=== PATIENT | male | born 1990 | race Two or more races ===

== ENCOUNTER 2025-01-30 11:38 | Emergency (ER) | payer OTHER ==
[~2025-01-30] VITALS: Ht 167.6 cm; Wt 90.7 kg
[2025-01-30] MEDS ORDERED: KETOROLAC TROMETHAMINE 60 MG VIAL IM STA (13:56)
[2025-01-30] MEDS ORDERED: KETOROLAC TROMETHAMINE 60 MG VIAL IM ONE (14:08)
[2025-01-30 14:53] LABS: EOS % 1.6 % (0.7-7.0); HEMATOCRIT 44.8 % (40.1-51.0); HEMOGLOBIN 15.7 g/dL (13.7-17.5); LYMPH % 19.4 % (19.3-53.1); MEAN CORPUSCULAR HEMOGLOBIN 30.4 pg (25.6-32.2); MONO % 12.4 % (4.7-12.5); NEUT % 65.8 % (34.0-71.1); PLATELET COUNT 212 K/uL (163-369); RED BLOOD COUNT 5.16 M/uL (4.63-6.08); RED CELL DISTRIBUTION WIDTH 11.4 % (11.6-14.4)
[2025-01-30 14:54] LABS: BASO % 0.7 % (0.1-1.2); EOS # 0.12 (0.04-0.54); LYMPH # 1.44 (1.18-3.74); MONO # 0.92 (0.24-0.82); NEUT # 4.89 (1.56-6.13)
[2025-01-30 14:59] LABS: INFLUENZA A AG NEGATIVE (NEGATIVE)
== END 2025-01-30 15:40 | disposition home or self-care (01) ==
LOC: ER 12:32
PROVIDERS: General Practice
DX: B34.9 Viral infection, unspecified (principal)